=== PATIENT | female | born 1985 | race Caucasian/White ===

== ENCOUNTER 2016-02-22 10:15 | Emergency (ER) | payer OTHER ==
[2016-02-22 10:41] VITALS: BP 109/67; PULSE 91; RESP 18; TEMP 98.1
--- NOTE | 2016-02-22 11:07 | ED ---
Skin/Abscess/FB HPI - General Chief complaint: Skin/Abscess/Foreign Body Stated complaint: RASH/ITCH Time Seen by Provider: 02/22/16 10:48 Source: patient, RN notes reviewed Mode of arrival: ambulatory - History of Present Illness Initial comments: Patient is a 30-year-old female who presents emergency room today with a chief complaint of a rash 3 months. Patient does admit that over the last few months she's been to several doctors told that it was ALLERGIES. States she's changed also some detergents. Tried multiple medications for ALLERGIES. States no relief. States it has changed where it started on the palms and no she has another rash that is too of the wrist belt line and scattered throughout the upper and lower extremities. States very itchy. States has same rash along with 2 daughters at home. Patient denies any recent fever, chills, shortness of breath, chest pain, back pain, abdominal pain, nausea or vomiting, numbness or tingling, dysuria or hematuria, constipation or diarrhea, headaches or visual changes, or any other complaints. - Related Data Home Medications Medication Instructions Recorded Confirmed Control(Unknown) 1 tab PO DAILY 07/29/15 02/22/16 Allergies Allergy/AdvReac Type Severity Reaction Status Date / Time morphine Allergy Itching Verified 02/22/16 10:41 Penicillins Allergy Rash/Hives Verified 02/22/16 10:41 Review of Systems ROS Statement: Those systems with pertinent positive or pertinent negative responses have been documented in the HPI. ROS Other: All systems not noted in ROS Statement are negative. Past Medical History Past Medical History: No Reported History History of Any Multi-Drug Resistant Organisms: None Reported Additional Past Surgical History / Comment(s): Lap, c section X2, removal of right ovary Past Psychological History: Anxiety Smoking Status: Current every day smoker Past Alcohol Use History: None Reported Past Drug Use History: None Reported General Exam - General Exam Comments Initial Comments: General: The patient is awake and alert, in no distress, and does not appear acutely ill. Eye: Pupils are equal, round and reactive to light, extra-ocular movements are intact. No nystagmus. There is normal conjunctiva bilaterally. No signs of icterus. Ears, nose, mouth and throat: There are moist mucous membranes and no oral lesions. Neck: The neck is supple, there is no tenderness or JVD. Cardiovascular: There is a regular rate and rhythm. No murmur, rub or gallop is appreciated. Respiratory: Lungs are clear to auscultation, respirations are non-labored, breath sounds are equal. No wheezes, stridor, rales, or rhonchi. Musculoskeletal: Normal ROM, no tenderness. Strength 5/5. Sensation intact. Pulses equal bilaterally 2+. Neurological: A&O x 3. CN II-XII intact, There are no obvious motor or sensory deficits. Coordination appears grossly intact. Speech is normal. Skin: Patient does have small little red spots that are excoriated from itching to the right lateral wrist and upper arms and trunk area. Psychiatric: Cooperative, appropriate mood & affect, normal judgment. Course Vital Signs 02/22/16 10:37 Temperature 98.1 F Pulse Rate 91 Respiratory 18 Rate Blood Pressure 109/67 O2 Sat by Pulse 99 Oximetry Medical Decision Making - Medical Decision Making Patient's rash is consistent with scabies and will be treated with permethrin cream advised repeat in 7-10 days. Disposition Clinical Impression: Scabies Disposition: HOME SELF-CARE Condition: Good Instructions: Scabies (ED) Additional Instructions: Please use cream from the neck down and repeat in 7-10 days as discussed. Time of Disposition: 11:04
== END 2016-02-22 11:30 | disposition home or self-care (01) ==
LOC: EC 10:15
DX: B86 Scabies (principal); F17.200 Nicotine dependence, unspecified, uncomplicated; Z88.0 Allergy status to penicillin; Z88.5 Allergy status to narcotic agent; Z79.3 Long term (current) use of hormonal contraceptives
CPT/HCPCS: 99282

== ENCOUNTER 2016-06-21 07:58 | Emergency (ER) | payer OTHER ==
--- NOTE | 2016-06-21 08:24 | ED ---
Neck Injury/Pain HPI - General Chief Complaint: Neck Pain/Injury Stated Complaint: neck and back pain Time Seen by Provider: 06/21/16 08:11 Source: patient, RN notes reviewed Mode of arrival: ambulatory Limitations: no limitations - History of Present Illness Initial Comments: 30-year-old female presents emergency Department chief complaint of neck and back pain. Patient states that she's had this in the past but woke up last night with this pain. She states is worse with movement and deep inspiration denies any shortness breath, chest pain. Denies any fever, chills or any cold like symptoms. Patient states that she feels pain around the right side of the neck but also around her shoulder blades in her rib region. She states it is bilateral in her ribs. She denies abdominal pain including nausea, vomiting diarrhea constipation. She states she is concerned she may be . Denies any vaginal bleeding vaginal discharge. Denies any dysuria or hematuria. Tylenol with no relief of symptoms. She states a warm heating pad did help. Shower no help. - Related Data Home Medications Medication Instructions Recorded Confirmed diphenhydrAMINE HCL [Benadryl] 50 mg PO HS 06/21/16 06/21/16 Previous Rx's Medication Instructions Recorded Ibuprofen [Motrin] 600 mg PO Q8HR PRN #30 tab 06/21/16 Orphenadrine [Norflex] 100 mg PO Q12H #10 tablet.er 06/21/16 Allergies Allergy/AdvReac Type Severity Reaction Status Date / Time Penicillins Allergy Unknown Verified 06/21/16 08:23 Childhood morphine AdvReac Itching Verified 06/21/16 08:23 Review of Systems ROS Statement: Those systems with pertinent positive or pertinent negative responses have been documented in the HPI. ROS Other: All systems not noted in ROS Statement are negative. Past Medical History Past Medical History: No Reported History History of Any Multi-Drug Resistant Organisms: None Reported Additional Past Surgical History / Comment(s): Lap, c section X2, removal of right ovary Past Psychological History: Anxiety Smoking Status: Current every day smoker Past Alcohol Use History: None Reported Past Drug Use History: None Reported General Exam Limitations: no limitations General appearance: alert, in no apparent distress Head exam: Present: atraumatic, normocephalic, normal inspection Eye exam: Present: normal appearance, PERRL, EOMI. Absent: scleral icterus, conjunctival injection, periorbital swelling ENT exam: Present: normal exam, normal oropharynx, mucous membranes moist, TM's normal bilaterally, normal external ear exam Neck exam: Present: normal inspection, tenderness (Right trapezius moderate), full ROM. Absent: meningismus, lymphadenopathy Respiratory exam: Present: normal lung sounds bilaterally, chest wall tenderness (Primarily on the right but also some on the left). Absent: respiratory distress, wheezes, rales, rhonchi, stridor Cardiovascular Exam: Present: regular rate, normal rhythm, normal heart sounds. Absent: systolic murmur, diastolic murmur, rubs, gallop, clicks GI/Abdominal exam: Present: soft, normal bowel sounds. Absent: distended, tenderness, guarding, rebound, rigid Back exam: Present: full ROM, tenderness, paraspinal tenderness. Absent: CVA tenderness (R), muscle spasm, vertebral tenderness Neurological exam: Present: alert, oriented X3, CN II-XII intact Skin exam: Present: warm, dry, intact, normal color. Absent: rash Course Vital Signs 06/21/16 08:06 Temperature 99.4 F Pulse Rate 72 Respiratory 20 Rate Blood Pressure 109/76 O2 Sat by Pulse 99 Oximetry Medical Decision Making - Medical Decision Making 30-year-old female presented for neck, back and chest pain. Patient has costochondritis and right trapezius muscle spasm. Patient was placed on ibuprofen, Norflex. Return parameters were discussed. - Lab Data Lab Results 06/21/16 Range/Units 08:20 Urine HCG, Qual Not Detected (Not Detectd) Disposition Clinical Impression: Trapezius muscle spasm, Costochondritis, acute Disposition: HOME SELF-CARE Condition: Stable Instructions: Costochondritis (ED), Muscle Spasm (ED) Additional Instructions: Please return to the Emergency Department if symptoms worsen or any other concerns. Prescriptions: Ibuprofen [Motrin] 600 mg PO Q8HR PRN #30 tab PRN Reason: Pain Orphenadrine [Norflex] 100 mg PO Q12H #10 tablet.er Time of Disposition: 09:34
--- NOTE | 2016-06-21 09:19 | XR ---
EXAMINATION TYPE: XR chest 2V DATE OF EXAM: 06/21/2016 9:16 AM HISTORY: Cough/pain. REFERENCE: NONE. FINDINGS: The lungs are clear. Pleural spaces are clear. The heart is not enlarged. IMPRESSION: NO ACUTE INTRATHORACIC ABNORMALITY.
[2016-06-21] MEDS ORDERED: KETOROLAC 60 MG/2 ML VIAL IM STA (09:35)
[2016-06-21] MEDS ORDERED: ORPHENADRINE 30 MG/ML 2 ML VIAL IM STA (09:35)
[2016-06-21 10:13] VITALS: BP 127/65; PULSE 90; RESP 18; TEMP 98.6
== END 2016-06-21 10:13 | disposition home or self-care (01) ==
LOC: EC 07:58
DX: M94.0 Chondrocostal junction syndrome [Tietze] (principal); M62.838 Other muscle spasm; F17.200 Nicotine dependence, unspecified, uncomplicated; Z79.899 Other long term (current) drug therapy; Z88.0 Allergy status to penicillin; Z88.5 Allergy status to narcotic agent
CPT/HCPCS: 81025; 71020; 99283; 96372 ×2; J2360; J1885

== ENCOUNTER 2016-08-18 11:29 | Emergency (ER) | payer OTHER ==
[2016-08-18 11:38] VITALS: BP 102/57; PULSE 80; RESP 18; TEMP 97.5
[2016-08-18] MEDS ORDERED: SODIUM CHLORIDE 0.9% 1,000 ML IV STA (11:44)
--- NOTE | 2016-08-18 11:48 | ED ---
Female Urogenital HPI - General Chief complaint: Vaginal Bleeding Stated complaint: 7 WEEKS AND BLEEDING Time Seen by Provider: 08/18/16 11:39 Source: patient, RN notes reviewed Mode of arrival: ambulatory Limitations: no limitations - History of Present Illness Initial comments: 31-year-old female presents to the emergency department with a chief complaint of vaginal bleeding in . Patient states she's about 7 weeks' and she had that started today. Patient states it started on the tissue paper when she wipes. Patient states she hasn't had any abdominal pain with this. Patient states this is a . Patient states is been no nausea vomiting. Patient states she is sick with an upper respiratory type infection and she is on azithromycin and Medrol Dosepak. Patient states she was concerned due to her continued symptoms so she thought that she evaluated. Patient denies any recent fever, chills, shortness of breath, chest pain, back pain, abdominal pain , nausea vomiting, numbness or tingling, dysuria or hematuria, constipation or diarrhea, headaches or visual changes, or any other current symptoms. Last Menstrual Period: 07/01/16 - Related Data Home Medications Medication Instructions Recorded Confirmed diphenhydrAMINE HCL [Benadryl] 50 mg PO HS 06/21/16 08/18/16 Allergies Allergy/AdvReac Type Severity Reaction Status Date / Time Penicillins Allergy Unknown Verified 08/18/16 11:47 Childhood morphine AdvReac Itching Verified 08/18/16 11:47 Review of Systems ROS Statement: Those systems with pertinent positive or pertinent negative responses have been documented in the HPI. ROS Other: All systems not noted in ROS Statement are negative. Past Medical History Past Medical History: No Reported History History of Any Multi-Drug Resistant Organisms: None Reported Additional Past Surgical History / Comment(s): Lap, c section X2, removal of right ovary Past Psychological History: Anxiety Smoking Status: Former smoker Past Alcohol Use History: None Reported Past Drug Use History: None Reported General Exam - General Exam Comments Initial Comments: General: The patient is awake and alert, in no distress, and does not appear acutely ill. Eye: Pupils are equal, round and reactive to light, extra-ocular movements are intact; there is normal conjunctiva bilaterally. No signs of icterus. Ears, nose, mouth and throat: There are moist mucous membranes and no oral lesions. Neck: The neck is supple, there is no tenderness. Cardiovascular: There is a regular rate and rhythm. No murmur, rub or gallop is appreciated. Respiratory: Lungs are clear to auscultation, respirations are non-labored, breath sounds are equal. She is expiratory wheeze, no stridor, rales, or rhonchi. Gastrointestinal: Soft, non-distended, non-tender abdomen without masses or organomegaly noted. There is no rebound or guarding present. No CVA tenderness. Bowel sounds are unremarkable. Back: There is no tenderness to palpation in the midline. There is no obvious deformity. No rashes noted. Musculoskeletal: Normal ROM, no tenderness, There is no pedal edema. There is no calf tenderness or swelling. Sensation intact. Pulses equal bilaterally 2+. Neurological: CN II-XII intact, There are no obvious motor or sensory deficits. Coordination appears grossly intact. Speech is normal. Skin: Skin is warm and dry and no rashes or lesions are noted. Psychiatric: Cooperative, appropriate mood & affect, normal judgment. Limitations: no limitations External exam: Present: normal external exam Speculum exam: Present: normal speculum exam, vaginal discharge (Minimal) By manual exam: Present: normal by manual exam Course Vital Signs 08/18/16 11:34 Temperature 97.5 F L Pulse Rate 80 Respiratory 18 Rate Blood Pressure 102/57 O2 Sat by Pulse 98 Oximetry Medical Decision Making - Medical Decision Making 31-year-old female presents with chief complaint of vaginal bleeding in . Patient's lab work and blood work has been reviewed. This time we discussed close follow-up with [facility]. We discussed return parameters all questions. Patient stated that she understood and she is planned. She will be discharged. - Lab Data Result diagrams: 08/18/16 12:11 08/18/16 12:11 Lab Results 08/18/16 08/18/16 08/18/16 Range/Units 12:11 12:11 12:11 WBC 20.4 H (3.8-10.6) k/uL RBC 4.62 (3.80-5.40) m/uL Hgb 12.5 (11.4-16.0) gm/dL Hct 37.2 (34.0-46.0) % MCV 80.5 (80.0-100.0) fL MCH 26.9 (25.0-35.0) pg MCHC 33.5 (31.0-37.0) g/dL RDW 15.9 H (11.5-15.5) % Plt Count 391 (150-450) k/uL Neutrophils % 71 % Lymphocytes % 23 % Monocytes % 3 % Eosinophils % 1 % Basophils % 0 % Neutrophils # 14.6 H (1.3-7.7) k/uL Lymphocytes # 4.7 (1.0-4.8) k/uL Monocytes # 0.7 (0-1.0) k/uL Eosinophils # 0.1 (0-0.7) k/uL Basophils # 0.1 (0-0.2) k/uL Sodium 138 (137-145) mmol/L Potassium 3.9 (3.5-5.1) mmol/L Chloride 107 (98-107) mmol/L Carbon Dioxide 19 L (22-30) mmol/L Anion Gap 12 mmol/L BUN 12 (7-17) mg/dL Creatinine 0.49 L (0.52-1.04) mg/dL Est GFR (MDRD) Af Amer >60 (>60 ml/min/1.73 sqM) Est GFR (MDRD) Non-Af >60 (>60 ml/min/1.73 sqM) Glucose 83 (74-99) mg/dL Calcium 8.9 (8.4-10.2) mg/dL Total Bilirubin 0.6 (0.2-1.3) mg/dL AST 16 (14-36) U/L ALT 28 (9-52) U/L Alkaline Phosphatase 64 (38-126) U/L Total Protein 7.1 (6.3-8.2) g/dL Albumin 4.2 (3.5-5.0) g/dL HCG, Quant 30501.6 mIU/mL Urine Color Urine Appearance (Clear) Urine pH (5.0-8.0) Ur Specific [place] (1.001-1.035) Urine Protein (Negative) Urine Glucose (UA) (Negative) Urine Ketones (Negative) Urine Blood (Negative) Urine Nitrite (Negative) Urine Bilirubin (Negative) Urine Urobilinogen (<2.0) mg/dL Ur Leukocyte Esterase (Negative) Urine RBC (0-5) /hpf Urine WBC (0-5) /hpf Ur Squamous Epith Cells (0-4) /hpf Urine Bacteria (None) /hpf Urine Mucus (None) /hpf Urine HCG, Qual (Not Detectd) Blood Type O Positive Blood Type Recheck No 08/18/16 08/18/16 Range/Units 12:20 12:20 WBC (3.8-10.6) k/uL RBC (3.80-5.40) m/uL Hgb (11.4-16.0) gm/dL Hct (34.0-46.0) % MCV (80.0-100.0) fL MCH (25.0-35.0) pg MCHC (31.0-37.0) g/dL RDW (11.5-15.5) % Plt Count (150-450) k/uL Neutrophils % % Lymphocytes % % Monocytes % % Eosinophils % % Basophils % % Neutrophils # (1.3-7.7) k/uL Lymphocytes # (1.0-4.8) k/uL Monocytes # (0-1.0) k/uL Eosinophils # (0-0.7) k/uL Basophils # (0-0.2) k/uL Sodium (137-145) mmol/L Potassium (3.5-5.1) mmol/L Chloride (98-107) mmol/L Carbon Dioxide (22-30) mmol/L Anion Gap mmol/L BUN (7-17) mg/dL Creatinine (0.52-1.04) mg/dL Est GFR (MDRD) Af Amer (>60 ml/min/1.73 sqM) Est GFR (MDRD) Non-Af (>60 ml/min/1.73 sqM) Glucose (74-99) mg/dL Calcium (8.4-10.2) mg/dL Total Bilirubin (0.2-1.3) mg/dL AST (14-36) U/L ALT (9-52) U/L Alkaline Phosphatase (38-126) U/L Total Protein (6.3-8.2) g/dL Albumin (3.5-5.0) g/dL HCG, Quant mIU/mL Urine Color Yellow Urine Appearance Cloudy H (Clear) Urine pH 6.5 (5.0-8.0) Ur Specific [place] 1.018 (1.001-1.035) Urine Protein Negative (Negative) Urine Glucose (UA) Negative (Negative) Urine Ketones Negative (Negative) Urine Blood Moderate H (Negative) Urine Nitrite Negative (Negative) Urine Bilirubin Negative (Negative) Urine Urobilinogen <2.0 (<2.0) mg/dL Ur Leukocyte Esterase Negative (Negative) Urine RBC 3 (0-5) /hpf Urine WBC 2 (0-5) /hpf Ur Squamous Epith Cells 9 H (0-4) /hpf Urine Bacteria Rare H (None) /hpf Urine Mucus Rare H (None) /hpf Urine HCG, Qual Detected (Not Detectd) Blood Type Blood Type Recheck - Radiology Data Radiology results: report reviewed, image reviewed Disposition Clinical Impression: Threatened Disposition: HOME SELF-CARE Condition: Stable Instructions: Threatened Miscarriage (ED) Additional Instructions: Please use medication as discussed. Please follow up with family doctor if symptoms have not improved over the next two days. Please return to the emergency room if your symptoms increase or worsen or for any other concerns. Referrals: Keren Mcbride MD [STAFF PHYSICIAN] - 1-2 days Time of Disposition: 13:43
[2016-08-18 12:23] LABS: Basophils # (A) 0.1 k/uL (0-0.2); Basophils % (A) 0 %; CH 27.3; CHCM 34.1; Eosinophils # (A) 0.1 k/uL (0-0.7); Eosinophils % (A) 1 %; HCT 37.2 % (34.0-46.0); HGB 12.5 gm/dL (11.4-16.0); Luc # (Auto) 0.25; Luc % (Auto) 1; Lymphocytes # (A) 4.7 k/uL (1.0-4.8); Lymphocytes % (A) 23 %; MCH 26.9 pg (25.0-35.0); MCHC 33.5 g/dL (31.0-37.0); MCV 80.5 fL (80.0-100.0); Mean Platelet Volume 6.5; Monocytes # (A) 0.7 k/uL (0-1.0); Monocytes % (A) 3 %; Neutrophils # (A) 14.6 k/uL (1.3-7.7); Neutrophils % (A) 71 %; RBC 4.62 m/uL (3.80-5.40); RDW 15.9 % (11.5-15.5); WBC 20.4 k/uL (3.8-10.6); WBC (Perox) 19.24
[2016-08-18 12:37] LABS: ALT 28 U/L (9-52); AST 16 U/L (14-36); Alkaline Phosphatase 64 U/L (38-126); Anion Gap 12 mmol/L; Blood Urea Nitrogen 12 mg/dL (7-17); Calcium 8.9 mg/dL (8.4-10.2); Carbon Dioxide 19 mmol/L (22-30); Chloride 107 mmol/L (98-107); Glucose 83 mg/dL (74-99); Non-African American GFR(MDRD) >60 (>60 ml/min/1.73 sqM); Potassium 3.9 mmol/L (3.5-5.1); Sodium 138 mmol/L (137-145); Total Bilirubin 0.6 mg/dL (0.2-1.3); Total Protein 7.1 g/dL (6.3-8.2)
[2016-08-18 12:59] LABS: Appearance,Urine Cloudy (Clear); Bacteria,Urine Rare /hpf; Bilirubin,Urine Negative (Negative); Glucose,Urine (UA) Negative (Negative); Ketones,Urine Negative (Negative); Leukocyte Esterase,Urine Negative (Negative); Mucus,Urine Rare /hpf; Nitrite,Urine Negative (Negative); PH, Urine 6.5 (5.0-8.0); Particle Count 4619; Protein,Urine Negative (Negative); RBC,Urine 3 /hpf (0-5); Specific Gravity,Urine 1.018 (1.001-1.035); Squamous Epithelial Cell,Urine 9 /hpf (0-4); UA Billing (MACRO vs. MICRO) MICRO; Urobilinogen,Urine <2.0 mg/dL (<2.0); WBC,Urine 2 /hpf (0-5)
--- NOTE | 2016-08-18 13:40 | US ---
EXAMINATION TYPE: US OB <= 14 wk fetus DATE OF EXAM: 08/18/2016 COMPARISON: TV on 07/29/2015 CLINICAL HISTORY: Pain. bleeding EXAM PERFORMED: Transvaginal (TV) and Transabdominal (TA) EXAM MEASUREMENTS: GESTATIONAL AGE / DATING Physician Established: none Dates by LMP: (6 weeks/6 days) EDC: 04/07/2017 Dates by First Scan: no previous Dates by Current Scan for: (5 weeks/6 days) EDC: 04/14/2017 MATERNAL ANATOMY Uterus: 9.8 x 5.9 x 7.7 cm Right Ovary: 5.0 x 2.8 x 3.0 cm Left Ovary: surgically absent Post CDS / Adnexa: wnl Presence of free fluid: no Presence of corpus luteal cyst: no Presence of subchorionic bleed: no GESTATION / SURVEY CRL: 0.5 cm (6 weeks/1 days) MSD: 1.3 cm (5 weeks/3 days) Yolk Sac (normal less than 6mm): 4 mm Heart Rate: 128 bpm Rhythm: Normal IUP: Viable IUP Date of LMP: 07/01/2016 Two hyperechoic lesions, as seen on previous study, measuring 1.1 x 1.0 cm and 1.8 x 1.6 cm respectiv marilin; also a complex lesion, as seen previously measuring 1.3 x 1.1 cm on right ovary. IMPRESSION: Single, viable IUP of 5 weeks 6 Days
[2016-08-18 13:42] LABS: HCG,Quantitative Serum 16167.6 mIU/mL
== END 2016-08-18 14:08 | disposition home or self-care (01) ==
LOC: EC 11:29
DX: O20.0 Threatened abortion (principal); Z87.891 Personal history of nicotine dependence; Z79.899 Other long term (current) drug therapy; Z88.0 Allergy status to penicillin; Z88.5 Allergy status to narcotic agent
CPT/HCPCS: 36415; 76801; 76817; 80053; 81001; 81025; 84702; 85025; 86900; 86901; 87086; 96360; 96361; 99284

== ENCOUNTER 2016-11-29 13:25 | Outpatient (CLI) | payer OTHER ==
[2016-11-29 13:49] LABS: Glucose,Whole Blood 124 mg/dL (75-99)
[2016-11-29 14:05] VITALS: BP 108/66; PULSE 91; RESP 17; TEMP 97.7
[2016-11-29 14:38] LABS: Appearance,Urine Clear (Clear); Bilirubin,Urine Negative (Negative); Glucose,Urine (UA) Negative (Negative); Ketones,Urine Negative (Negative); Leukocyte Esterase,Urine Negative (Negative); Nitrite,Urine Negative (Negative); PH, Urine 6.5 (5.0-8.0); Protein,Urine Negative (Negative); Specific Gravity,Urine 1.004 (1.001-1.035); UA Billing (MACRO vs. MICRO) CHEM; Urobilinogen,Urine <2.0 mg/dL (<2.0)
--- NOTE | 2016-11-29 23:07 | P.MSEPDOC ---
Presenting Problems - Arrival Data Date of Arrival on Unit: 11/29/16 Time of Arrival on Unit: 13:25 Mode of Transport: Wheelchair - Complaint OB-Reason for Admission/Chief Complaint: Decreased Movement, Dizziness Comment: pt started taking fiorcet for headaches yesterday morning and has been feeling dizzy and had emesis x2 since starting med, also reports decrease movement Medical History - Information : 5 Para: 2 Term: 2 : 0 Abortions: Spontaneous or Elective: 2 Number of Living Children: 2 - Gestational Age Gestational Age by TOBY (wks/days): 21 Weeks and 4 Days - History Complications: GDM Comment: pt reports history of GDM, checked bedside accucheck with result of 124 , pt is 21 4/7 weeks gestation Review of Systems - Review of Systems Constitutional: No problems Breast: No problems ENT: No problems Cardiovascular: No problems Respiratory: No problems Gastrointestinal: No problems Genitourinary: No problems Musculoskeletal: No problems Neurological: Dizziness Skin: No problems Vital Signs - Temperature Temperature: 97.7 F Temperature Source: Temporal Artery Scan - Pulse Right Brachial Pulse Rate: 91 Pulse Assessment Method: Auscultation - Respirations Respiratory Rate: 17 Oxygen Delivery Method: Room Air O2 Sat by Pulse Oximetry: 97 - Blood Pressure Right Arm Blood Pressure: 108/66 Blood Pressure Mean: 80 Blood Pressure Source: Automatic Cuff Medical Screen Scoring (Pre) - Cervical Exam Dilation: Exam Deferred Effacement: Exam Deferred Membranes: Intact - Uterine Contractions Frequency: N/A Duration: N/A Intensity: N/A - Maternal Vital Signs Maternal Temperature: N/A Maternal Blood Pressure: N/A Signs of Preeclampsia: N/A Maternal Respirations: N/A - Maternal Trauma Maternal Trauma: N/A - Assessment Baseline FHR: 140 Position: N/A Station: N/A - Total Score Total Score (Pre): 0 - Level of Risk Level of Risk: Low (0-5) Physician Notification (Pre) - Physician Notified Physician Notified Date: 11/29/16 Physician Notified Time: 14:05 Physician/Practitioner Notifed:: Dr Lozano Spoke With: Dr Lozano New Order Received: Yes (send u/a) - Notification Comment Comment: pt is receiving care from Dr Dang Medical Screen Scoring (Post) - Uterine Contractions Frequency: N/A Duration: N/A Intensity: N/A - Maternal Vital Signs Maternal Temperature: N/A Maternal Blood Pressure: N/A Signs of Preeclampsia: N/A Maternal Respirations: N/A - Maternal Trauma Maternal Trauma: N/A - Assessment Position: N/A Station: N/A - Total Score Total Score (Post): 0 - Post Treatment Level of Risk Post Treatment Level of Risk: Low (0-5) Physician Notification (Post) - Physician Notified Physician Notified Date: 11/29/16 Physician Notified Time: 14:45 Physician/Practitioner Notified:: Dr Lozano Spoke With: Dr Lozano New Order Received: Yes (dc home) Disposition - Disposition OB Disposition: Discharge to home, Written follow up instructions reviewed Discharge Date: 11/29/16 Discharge Time: 14:50 I agree with the RN Medical Screening Exam: Yes Risk & Benefit of care provided described in d/c instruction: Yes Diagnosis: DECREASED MOVEMENTS, SECOND TRIMESTER, FETUS 1
== END 2016-11-29 14:50 | disposition home or self-care (01) ==
LOC: FBPOP 13:25
PROVIDERS: ATTEND Obstetrics & Gynecology
DX: O36.8121 Decreased fetal movements, second trimester, fetus 1 (principal); Z3A.21 21 weeks gestation of pregnancy
CPT/HCPCS: 81003; G0463; 99213

== ENCOUNTER 2017-10-21 18:20 | Emergency (ER) | payer OTHER ==
[2017-10-21 18:23] VITALS: BP 116/72; PULSE 94; RESP 20; TEMP 97.9
[2017-10-21] MEDS ORDERED: KETOROLAC 30 MG/ML 1 ML VIAL IM STA (18:57)
--- NOTE | 2017-10-21 19:00 | ED ---
General Adult HPI - General Chief complaint: Neck Pain/Injury Stated complaint: Neck Pain Time Seen by Provider: 10/21/17 18:31 Source: patient, RN notes reviewed Mode of arrival: ambulatory Limitations: no limitations - History of Present Illness Initial comments: 32-year-old female with a chief complaint of neck and right shoulder pain 2 weeks. Patient denies any injuries. Patient states the pain is all on the right side of her neck and travels to her right shoulder. She states movement of the neck and shoulder make the pain worse. Patient also complains of some numbness on her right lateral shoulder. Patient denies any fevers or chills or recent illnesses. Patient states she had a massage about one month ago and has been seeing chiropractics. When she requested x-rays they stated they were not able to do them. Patient did attempt to follow-up with primary care doctor but just established yesterday so was unable to do so. Patient denies any chance of and states she has had a tubal. Patient has no other complaints at this time including shortness of breath, chest pain, abdominal pain, nausea or vomiting, headache, or visual changes. - Related Data Home Medications Medication Instructions Recorded Confirmed Butalb/APAP/Caff 50-325-40Mg 1 - 2 tab PO Q6HR PRN 11/29/16 11/29/16 [Fioricet 50-325-40] Ferrous Sulfate [Iron] 325 mg PO DAILY 11/29/16 11/29/16 Folic Acid 0.4 mg PO DAILY 11/29/16 11/29/16 Loratadine 10 mg PO DAILY 11/29/16 11/29/16 Pnv No.95/Ferrous Fum/Folic AC 1 each PO DAILY 11/29/16 11/29/16 [ Multivitamin Tablet] Ranitidine HCl [Zantac] 75 mg PO BID 11/29/16 11/29/16 Vitamin B Complex 1 each PO DAILY 11/29/16 11/29/16 Allergies Allergy/AdvReac Type Severity Reaction Status Date / Time Penicillins Allergy Unknown Verified 10/21/17 18:23 Childhood morphine AdvReac Itching Verified 10/21/17 18:23 Review of Systems ROS Statement: Those systems with pertinent positive or pertinent negative responses have been documented in the HPI. ROS Other: All systems not noted in ROS Statement are negative. Past Medical History Past Medical History: No Reported History History of Any Multi-Drug Resistant Organisms: None Reported Additional Past Surgical History / Comment(s): Lap, c section X2, removal of right ovary Past Psychological History: Anxiety Smoking Status: Current every day smoker Past Alcohol Use History: None Reported Past Drug Use History: None Reported General Exam Limitations: no limitations General appearance: alert, in no apparent distress Head exam: Present: atraumatic, normocephalic, normal inspection Eye exam: Present: normal appearance, PERRL, EOMI. Absent: scleral icterus, conjunctival injection, nystagmus, periorbital swelling, periorbital tenderness ENT exam: Present: normal exam, normal oropharynx, mucous membranes moist, TM's normal bilaterally, normal external ear exam Neck exam: Present: normal inspection, tenderness (No tenderness of the cervical spine. However patient does have tenderness of the right trapezius along the cervical portion.), full ROM (Patient does have full range of motion of the neck but has some pain with flexion and looking to the left.). Absent: meningismus, lymphadenopathy Respiratory exam: Present: normal lung sounds bilaterally. Absent: respiratory distress, wheezes, rales, rhonchi, stridor Cardiovascular Exam: Present: regular rate, normal rhythm, normal heart sounds. Absent: systolic murmur, diastolic murmur, rubs, gallop, clicks Extremities exam: Present: normal capillary refill (Capillary refill less than 2 seconds and radial pulse 2+ in the right upper extremity), other (Sensation intact in right upper extremity extremity. However patient does have some decreased sensation of the right deltoid.). Absent: full ROM (Patient is able to abduct shoulder to 90 and flex shoulder to 90. Able to extend to 30.) Back exam: Absent: tenderness Neurological exam: Present: alert, oriented X3, CN II-XII intact Psychiatric exam: Present: normal affect, normal mood Skin exam: Present: warm, dry, intact, normal color. Absent: rash Course Vital Signs 10/21/17 18:22 Temperature 97.9 F Pulse Rate 94 Respiratory 20 Rate Blood Pressure 116/72 O2 Sat by Pulse 99 Oximetry Medical Decision Making - Medical Decision Making 32-year-old female since to the emergency department for a chief complaint of right neck and shoulder pain 2 months. Patient has tenderness of the right paraspinal trapezius as well as tenderness of the trapezius around the right shoulder blade. Minor decreased sensation over the right deltoid. Neurovascular intact otherwise. Secondary Connector Armature strength 5 out of 5 in the right upper extremity. Right arm strength 5 out of 5. X-ray shows a negative right shoulder exam, no fracture or dislocation. Cervical spine shows a negative exam. There are bilateral cervical ribs. Patient likely has a muscle spasm of the right trapezius as well as cervical radiculopathy causing pain in the shoulder and decreased sensation to the deltoid. Patient was given a Toradol shot in the emergency department. She will continue Tylenol for the rest of the night and then resume taking Motrin tomorrow. She will heat the area and do gentle stretching. She will follow up with orthopedics in one to 2 days. She will return if she has any worsening symptoms. Disposition Clinical Impression: Trapezius muscle spasm, Cervical radiculopathy Disposition: HOME SELF-CARE Condition: Good Instructions: Cervical Radiculopathy (ED), Muscle Spasm (ED) Additional Instructions: Please take Motrin and Tylenol for pain. Please apply heat to the area. These use gentle stretching of the right shoulder and neck. Please follow-up with orthopedics in one to 2 days. Return to the emergency department if you have any worsening symptoms. Is patient prescribed a controlled substance at d/c from ED?: No Referrals: Clay Saxena MD [Primary Care Provider] - 1-2 days Tyrone Walters MD [STAFF PHYSICIAN] - 1-2 days Time of Disposition: 19:58
--- NOTE | 2017-10-21 19:38 | XR ---
EXAMINATION TYPE: XR cervical spine comp DATE OF EXAM: 10/21/2017 COMPARISON: NONE HISTORY: Neck pain TECHNIQUE: 6 views FINDINGS: Vertebra have normal spacing and alignment. Posterior elements are intact. Neural foramina are widely patent. Atlantoaxial facet joint is normal. There are small cervical ribs. IMPRESSION: Bilateral cervical ribs. Otherwise negative exam.
--- NOTE | 2017-10-21 19:40 | XR ---
EXAMINATION TYPE: XR shoulder complete RT DATE OF EXAM: 10/21/2017 COMPARISON: NONE HISTORY: Neck pain TECHNIQUE: 3 views FINDINGS: I see no fracture nor dislocation. Joint spaces are normal. There are no pathologic calcifi cations. IMPRESSION: Negative right shoulder exam.
== END 2017-10-21 20:04 | disposition home or self-care (01) ==
LOC: SUPCPDRO 18:20 → EC 18:20
DX: M54.12 Radiculopathy, cervical region (principal); M62.830 Muscle spasm of back; F17.200 Nicotine dependence, unspecified, uncomplicated; Z79.899 Other long term (current) drug therapy; Z88.0 Allergy status to penicillin; Z88.5 Allergy status to narcotic agent
CPT/HCPCS: 72050; 73030; 99283; 96372; J1885

== ENCOUNTER 2017-12-14 10:13 | Day surgery (SDC) | payer OTHER ==
[2017-12-06 11:07] VITALS: BMI 32.4
[~2017-12-14 10:13] MED LIST: BACITRACIN 50,000 UNIT, POLYMYXIN B 500,000 UNIT in SODIUM CHLORIDE 0.9% IRRIGATIO 1,00... IRRIGATION ONE; DEXAMETHASONE SOD PHOSPHATE 10 MG/ML 1 ML VIAL IV ONE; LACTATED RINGERS 1,000 ML IV SCH; MIDAZOLAM 2 MG/2 ML VIAL IV PRN; ONDANSETRON 4 MG/2 ML VIAL IVP ONE; ceFAZolin IN SWFI 2 GM/20 ML SYRINGE IVP ONE
[2017-12-14] MEDS ORDERED: LIDOCAINE 1% 20 ML VIAL (10MG/ML) FOR IV START INTRADERMA ONE (10:50)
[2017-12-14] MEDS ORDERED: SUCCINYLCHOLINE CHLORIDE 100 MG/5 ML SYR IV ONE (11:11)
[2017-12-14] MEDS ORDERED: fentaNYL (PF) 50 MCG/ML 2 ML AMP ONE (11:11)
[2017-12-14] MEDS ORDERED: PROPOFOL 10 MG/ML 20 ML VIAL IV ONE (11:11)
[2017-12-14] MEDS ORDERED: MIDAZOLAM 2 MG/2 ML VIAL ONE (11:11)
[2017-12-14] MEDS ORDERED: LIDOCAINE 1% INJ 10MG/ML (20 ML MDV) ONE (11:11)
[2017-12-14] MEDS ORDERED: HYDROmorphone (PF) 1 MG/ML ONE (11:11)
[2017-12-14] MEDS ORDERED: BUPIVACAINE-EPI 0.5%-1:200,000 10 ML VIAL SQ ONE (12:39)
[2017-12-14] MEDS ORDERED: ONDANSETRON 4 MG/2 ML VIAL IVP PRN (12:54)
[2017-12-14] MEDS ORDERED: HYDROmorphone 1 MG/ML 1 ML SYRINGE IVP PRN ×2 (12:54)
[2017-12-14] MEDS ORDERED: HYDROcodone/APAP 5-325MG 1 EACH TAB PO PRN (12:54)
[2017-12-14] MEDS ORDERED: BENZOCAINE/MENTHOL LOZENG 1 EACH LOZENGE MUCOUS MEM PRN (12:54)
[2017-12-14] MEDS ORDERED: ACETAMINOPHEN TAB 325 MG TAB PO PRN (12:54)
--- NOTE | 2017-12-14 12:55 | XR ---
EXAMINATION TYPE: XR cervical spine 1V DATE OF EXAM: 12/14/2017 COMPARISON: NONE HISTORY: Postop TECHNIQUE: One view is submitted. FINDINGS: Postsurgical change appears in near-anatomic alignment. Suggestion of an endotracheal tube. Additiona l wiring catheters overlying the soft tissues. IMPRESSION: 1. Postsurgical change.
[2017-12-14] MEDS ORDERED: SODIUM CHLORIDE 0.9% 1,000 ML IV SCH (13:00)
--- NOTE | 2017-12-14 13:00 | P.OP ---
Date of Procedure: 12/14/17 Preoperative Diagnosis: Herniated nucleus pulposis C4 5 Right upper extremity radiculopathy Right upper extremity weakness Neck pain Postoperative Diagnosis: Same Anesthesia: GETA Pathology: none sent Condition: stable Disposition: PACU Description of Procedure: BRIEF OPERATIVE NOTE Preoperative Diagnosis: Herniated nucleus pulposis C4 5 with extruded fragment, right upper extremity radiculopathy, right upper extremity weakness, neck pain Postoperative Diagnosis: Same Procedure: Anterior cervical decompression with discectomy and fusion C4 5 Placement of interbody graft C4 5 Application of anterior cervical plate C4 5 Surgeon: Dr. Haynes Professor Of Early Childhood Education: Germain ROSA who is present throughout the entire the case persistence during positioning, dissection, exposure, visualization, and all crucial elements of the case as well as closure. Anesthesia: General anesthesia Estimated blood loss: Less than 50 mL Complications: None apparent Components implanted: [place] anterior cervical plate system from [employer] with a Vikoss interbody allograft bone graft Disposition: To recovery room in good stable condition. OPERATIVE INDICATIONS The patient has had severe issues in their neck and upper extremities. She is found have a very large disc herniation at C4 5 with a large extruded fragment causing severe right foraminal stenosis and distortion of the spinal cord. This disc herniation correlated very well with her neck and upper extremity symptoms. She was having severe radiculopathy on the right side with weakness at her right upper extremity. She was having significant debility and difficulty with her regular activities and with any sort of work activities. The patient has been through conservative treatment. She is not having any benefit. We discussed various treatment options including surgery, and the patient wishes to proceed with surgery We discussed the risk, patient's alternatives and benefits of surgery including but not limited to, risk of bleeding risk of infection, risk of need for further surgery, risk of decreased , loss of motion, muscle function, malunion nonunion, hardware failure, nerve damage, paralysis, heart attack, and . OPERATIVE SUMMARY After discussing all the risks, patient alternatives and benefits at length, the patient elected to proceed with surgical intervention, signed informed consent, and presented for their procedure. The patient was seen and examined in the preoperative holding area and the surgical site was marked. The patient was given antibiotics and brought to the operating room. The patient was positioned on the operating room table in a supine position being careful to pad any bony prominences and pressure points. The patient was sedated and intubated by anesthesia in standard fashion. Once the airway and C- spine were stabilized the patient's arms were padded and tucked at her side, with her shoulders gently taped. The head was placed in a donut pad with the neck in good neutral alignment and position. We were careful to maintain the patient's cervical spine and good neutral alignment and position throughout. The patient was prepped and draped in a normal standard fashion. An appropriate timeout and keystone protocol performed. We were able to proceed with the surgery. The local wound area was infiltrated with local anesthetic. An incision was made transversely approximately 2-1/2 cm over the appropriate levels at C4 5. Dissection was taken down subcutaneously to the level of the platysma which was split in line with its fibers. Dissection was taken with a carotid approach, with the trachea and esophagus medial and the carotid sheath laterally. We dissected down to the anterior surface of the vertebral bodies. Intraoperative x-ray was taken which showed a marker at the appropriate level. With the appropriate level positively confirmed, we were able to proceed with discectomy at the appropriate levels of C4 5. All of the operative levels were exposed appropriately. The patient had all their twitches back, and there was no evidence of recurrent laryngeal issue. The wound was copiously irrigated and suctioned dry as had been done periodically throughout the case. At the appropriate level/levels of C4 5, I established an annulotomy with an 11 blade scalpel. A discectomy was performed with a combination of pituitary rongeurs, curettes, a high-speed bur, and Kerrison rongeurs. The posterior longitudinal ligament was taken down as were any posterior osteophytes. There was a large extruded disc fragment at the right paracentral area causing severe stenosis and I was able to remove the disc fragments and any other loose fragments that were herniated. As able get a excellent decompression with the discectomy. This gave good central and bilateral foraminal decompression. There is no evidence of any dural tear or leak. The endplates were prepared with a high- speed bur. With the endplates in good parallel position, I was able to size for the appropriate size interbody graft. The wound was irrigated and suctioned dry the graft was prepared and malleted into position. It had good alignment and position with the anterior surface flush with the anterior surface of the vertebral bodies of C4 5 of C4 5 With the grafts intact, I was able to measure and contour and appropriate sized plate. The plate was positioned at the midline over the appropriate levels. Screw holes were established with a hand drill and drill guide. Screws were placed in good alignment and position with excellent bony purchase. She has somewhat small vertebrae and we used 12 mm length screws rather than 14 mm. They were seated under the locking device. The construct was checked and found to be stable. Intraoperative x-ray was taken which showed good alignment and position of the implants at the appropriate levels. There was no evidence of any dural tear or leak. Good hemostasis was maintained. The wound was copiously irrigated and suctioned dry as had been done periodically throughout the case. The platysma was closed with absorbable suture. The subcutaneous tissue was closed. The subcuticular tissue was closed with absorbable suture. The wound was cleaned and dried and dressed appropriately. A soft cervical collar was placed appropriately. The patient was woken up by anesthesia, extubated, transferred back gently to their hospital bed and brought to the recovery room in good stable condition. The patient will be admitted to the hospital for appropriate postoperative care , medical management and monitoring. We will continue to follow them closely about the postoperative course.
[2017-12-14 13:10] VITALS: TEMP 97.4
[2017-12-14] MEDS: HYDROmorphone 1 MG/ML 1 ML SYRINGE IVP PRN ×4 (13:17→13:31)
[2017-12-14] MEDS ORDERED: diphenhydrAMINE 50 MG/ML 1 ML VIAL IVP ONE (13:17)
[2017-12-14 13:21] VITALS: RESP 16
[2017-12-14] MEDS ORDERED: MEPERIDINE 50 MG/ML SYRINGE IVP ONE (13:41)
[2017-12-14 14:03] VITALS: BP 133/84; PULSE 70
[2017-12-14] MEDS ORDERED: ceFAZolin IN SWFI 2 GM/20 ML SYRINGE IVP SCH (16:00)
--- NOTE | 2017-12-15 13:33 | XR ---
Cervical spine HISTORY: Needle placement Single lateral view of the cervical spine submitted and correlated prior exam 10/21/2017 There is a needle superimposed over the C5 vertebral body. Endotracheal tube is in place. Temperature probe noted incidentally. There is overlying artifact. IMPRESSION: Orthopedic localization.
== END 2017-12-14 17:14 | disposition home or self-care (01) ==
LOC: OR 10:13 → 4SSUR 13:52 → OR 17:14
PROVIDERS: ATTEND Orthopaedic Surgery Orthopaedic Surgery of the Spine
DX: M50.121 Cervical disc disorder at C4-C5 level with radiculopathy (principal); Z88.0 Allergy status to penicillin
CPT/HCPCS: 72020; 22551; 20931; 22845; C1713; C1762; J1200; J2175; J2405; J1170; J0690

== ENCOUNTER 2020-05-05 17:55 | Emergency (ER) | payer OTHER ==
[2020-05-05 18:07] VITALS: TEMP 98.3
[2020-05-05] MEDS ORDERED: ONDANSETRON 4 MG/2 ML VIAL IVP STA (19:34)
[2020-05-05 19:46] LABS: Appearance,Urine Clear (Clear); Basophils # (A) 0.1 k/uL (0-0.2); Basophils % (A) 0 %; Bilirubin,Urine Negative (Negative); Blood,Urine Large (Negative); Color,Urine Yellow; Eosinophils # (A) 0.1 k/uL (0-0.7); Eosinophils % (A) 1 %; Glucose,Urine (UA) Negative (Negative); HCT 37.5 % (34.0-46.0); HGB 12.6 gm/dL (11.4-16.0); Ketones,Urine Negative (Negative); Leukocyte Esterase,Urine Negative (Negative); Lymphocytes # (A) 3.2 k/uL (1.0-4.8); Lymphocytes % (A) 23 %; MCH 27.6 pg (25.0-35.0); MCHC 33.6 g/dL (31.0-37.0); MCV 81.9 fL (80.0-100.0); Mean Platelet Volume 6.9; Monocytes # (A) 0.5 k/uL (0-1.0); Monocytes % (A) 3 %; Mucus,Urine Rare /hpf; Neutrophils # (A) 10.1 k/uL (1.3-7.7); Neutrophils % (A) 72 %; Nitrite,Urine Negative (Negative); Platelet Count 332 k/uL (150-450); Protein,Urine Trace (Negative); RBC 4.58 m/uL (3.80-5.40); RBC,Urine >182 /hpf (0-5); RDW 14.6 % (11.5-15.5); Specific Gravity,Urine 1.021 (1.001-1.035); Squamous Epithelial Cell,Urine 1 /hpf (0-4); Urobilinogen,Urine <2.0 mg/dL (<2.0); WBC 14.1 k/uL (3.8-10.6); WBC,Urine 9 /hpf (0-5)
[2020-05-05 19:51] LABS: INR 0.9 (<1.2)
--- NOTE | 2020-05-05 19:55 | ED ---
Female Urogenital HPI - General Chief complaint: Vaginal Bleeding Stated complaint: bleeding from biopsy site, nausea Time Seen by Provider: 05/05/20 18:48 Source: patient Mode of arrival: ambulatory - History of Present Illness Initial comments: Patient is a 34-year-old female presenting to the emergency Department with complaints of vaginal bleeding for the past 2 weeks. Patient states she had a uterine biopsy done on April 21 by her BIRD RAISER out of [facility]. Patient states she initially had a little bit of discharge and bleeding, stopped for a couple days and then the bleeding started again. She did follow up with her BIRD RAISER last week who stated that it was normal however patient continues to have bleeding. She states today she has gone through a pad every 4 hours. She started to feel lightheaded, nauseous. Call her BIRD RAISER again today however she did not get an answer. She does admit to some abdominal cramping, no abdominal pain, no fevers or chills. No chest pain or shortness of breath. She has no further complaints at this time. - Related Data Home Medications Medication Instructions Recorded Confirmed Kurvelo 1 tab PO HS 05/05/20 05/05/20 Allergies Allergy/AdvReac Type Severity Reaction Status Date / Time Penicillins Allergy Unknown Verified 05/05/20 20:20 Childhood morphine AdvReac Itching Verified 05/05/20 20:20 Review of Systems ROS Statement: Those systems with pertinent positive or pertinent negative responses have been documented in the HPI. ROS Other: All systems not noted in ROS Statement are negative. Past Medical History Past Medical History: No Reported History History of Any Multi-Drug Resistant Organisms: None Reported Past Surgical History: Hernia Repair Additional Past Surgical History / Comment(s): LapAROSCOPY, c section X2, removal of right ovary, biopsy of cervix, nov 2017 neck sx Past Anesthesia/Blood Transfusion Reactions: No Reported Reaction Past Psychological History: Anxiety Smoking Status: Former smoker Past Alcohol Use History: None Reported Past Drug Use History: None Reported - Past Family History Mother Family Medical History: Cancer General Exam - General Exam Comments Initial Comments: GENERAL: Patient is well-developed and well-nourished. Patient is nontoxic and in no acute distress. HEAD: Atraumatic, normocephalic. EYES: Pupils equal round and reactive to light, extraocular movements intact, sclera anicteric, conjunctiva are normal. Eyelids were unremarkable. ENT: TMs normal, nares patent, oropharynx clear without exudates. Moist mucous mem branes. NECK: Normal range of motion, supple without lymphadenopathy or JVD. LUNGS: Unlabored respirations. Breath sounds clear to auscultation bilaterally and equal. No wheezes rales or rhonchi. HEART: Regular rate and rhythm without murmurs, rubs or gallops. ABDOMEN: Soft, nontender, normoactive bowel sounds. No guarding, no rebound. No masses appreciated. MUSCULOSKELETAL: Normal extremities with adequate strength and normal range of motion, no pitting or edema. No clubbing or cyanosis. NEUROLOGICAL: Patient is alert and oriented x 3. Motor and sensory are also intact. Cranial nerves II through XII grossly intact. Symmetrical smile. Normal speech, normal gait. PSYCH: Normal mood, normal affect. SKIN: Warm, Dry, normal turgor, no rashes or lesions noted. External exam: Present: normal external exam Speculum exam: Present: vaginal bleeding. Absent: cervical discharge, foreign body By manual exam: Present: normal by manual exam Course Vital Signs 05/05/20 18:05 Temperature 98.3 F Pulse Rate 83 Respiratory 18 Rate Blood Pressure 121/74 O2 Sat by Pulse 98 Oximetry Medical Decision Making - Medical Decision Making Patient is a 34-year-old female here for vaginal bleeding after she had cervix a biopsy on April 21. On pelvic exam, there is no stiff Bleeding, there is some small amount of blood in the vaginal vault. Her cervix looks healthy and normal. I did do a genital culture which is pending. No belly pain on exam. Labs are within normal limits, urine shows evidence of bacteria, trichomonas is negative. As the patient and her hemoglobin is stable, do recommend following up with her BIRD RAISER regarding her continuous bleeding. Return parameters were di scussed with the patient she verbalized understanding. She is in agreement with this plan of care. Case discussed Dr. Mohr. - Lab Data Result diagrams: 05/05/20 19:18 05/05/20 19:18 Lab Results 05/05/20 05/05/20 05/05/20 Range/Units 19:18 19:18 19:18 WBC 14.1 H (3.8-10.6) k/uL RBC 4.58 (3.80-5.40) m/uL Hgb 12.6 (11.4-16.0) gm/dL Hct 37.5 (34.0-46.0) % MCV 81.9 (80.0-100.0) fL MCH 27.6 (25.0-35.0) pg MCHC 33.6 (31.0-37.0) g/dL RDW 14.6 (11.5-15.5) % Plt Count 332 (150-450) k/uL MPV 6.9 Neutrophils % 72 % Lymphocytes % 23 % Monocytes % 3 % Eosinophils % 1 % Basophils % 0 % Neutrophils # 10.1 H (1.3-7.7) k/uL Lymphocytes # 3.2 (1.0-4.8) k/uL Monocytes # 0.5 (0-1.0) k/uL Eosinophils # 0.1 (0-0.7) k/uL Basophils # 0.1 (0-0.2) k/uL PT (9.0-12.0) sec INR (<1.2) APTT (22.0-30.0) sec Sodium (137-145) mmol/L Potassium (3.5-5.1) mmol/L Chloride (98-107) mmol/L Carbon Dioxide (22-30) mmol/L Anion Gap mmol/L BUN (7-17) mg/dL Creatinine (0.52-1.04) mg/dL Est GFR (CKD-EPI)AfAm (>60 ml/min/1.73 sqM) Est GFR (CKD-EPI)NonAf (>60 ml/min/1.73 sqM) Glucose (74-99) mg/dL Calcium (8.4-10.2) mg/dL Total Bilirubin (0.2-1.3) mg/dL AST (14-36) U/L ALT (4-34) U/L Alkaline Phosphatase (38-126) U/L Total Protein (6.3-8.2) g/dL Albumin (3.5-5.0) g/dL Urine Color Yellow Urine Appearance Clear (Clear) Urine pH 6.0 (5.0-8.0) Ur Specific [place] 1.021 (1.001-1.035) Urine Protein Trace H (Negative) Urine Glucose (UA) Negative (Negative) Urine Ketones Negative (Negative) Urine Blood Large H (Negative) Urine Nitrite Negative (Negative) Urine Bilirubin Negative (Negative) Urine Urobilinogen <2.0 (<2.0) mg/dL Ur Leukocyte Esterase Negative (Negative) Urine RBC >182 H (0-5) /hpf Urine WBC 9 H (0-5) /hpf Ur Squamous Epith Cells 1 (0-4) /hpf Urine Mucus Rare H (None) /hpf Urine HCG, Qual Not Detected (Not Detectd) Trichomonas Ag (Rapid) (Negative) Blood Type Blood Type Recheck Bld Type Recheck Status Antibody Screen Spec Expiration Date 05/05/20 05/05/20 05/05/20 Range/Units 19:18 19:20 19:23 WBC (3.8-10.6) k/uL RBC (3.80-5.40) m/uL Hgb (11.4-16.0) gm/dL Hct (34.0-46.0) % MCV (80.0-100.0) fL MCH (25.0-35.0) pg MCHC (31.0-37.0) g/dL RDW (11.5-15.5) % Plt Count (150-450) k/uL MPV Neutrophils % % Lymphocytes % % Monocytes % % Eosinophils % % Basophils % % Neutrophils # (1.3-7.7) k/uL Lymphocytes # (1.0-4.8) k/uL Monocytes # (0-1.0) k/uL Eosinophils # (0-0.7) k/uL Basophils # (0-0.2) k/uL PT 10.0 (9.0-12.0) sec INR 0.9 (<1.2) APTT 24.0 (22.0-30.0) sec Sodium 136 L (137-145) mmol/L Potassium 4.4 (3.5-5.1) mmol/L Chloride 105 (98-107) mmol/L Carbon Dioxide 21 L (22-30) mmol/L Anion Gap 10 mmol/L BUN 14 (7-17) mg/dL Creatinine 0.54 (0.52-1.04) mg/dL Est GFR (CKD-EPI)AfAm >90 (>60 ml/min/1.73 sqM) Est GFR (CKD-EPI)NonAf >90 (>60 ml/min/1.73 sqM) Glucose 104 H (74-99) mg/dL Calcium 9.4 (8.4-10.2) mg/dL Total Bilirubin 0.3 (0.2-1.3) mg/dL AST 31 (14-36) U/L ALT 27 (4-34) U/L Alkaline Phosphatase 58 (38-126) U/L Total Protein 7.5 (6.3-8.2) g/dL Albumin 4.5 (3.5-5.0) g/dL Urine Color Urine Appearance (Clear) Urine pH (5.0-8.0) Ur Specific [place] (1.001-1.035) Urine Protein (Negative) Urine Glucose (UA) (Negative) Urine Ketones (Negative) Urine Blood (Negative) Urine Nitrite (Negative) Urine Bilirubin (Negative) Urine Urobilinogen (<2.0) mg/dL Ur Leukocyte Esterase (Negative) Urine RBC (0-5) /hpf Urine WBC (0-5) /hpf Ur Squamous Epith Cells (0-4) /hpf Urine Mucus (None) /hpf Urine HCG, Qual (Not Detectd) Trichomonas Ag (Rapid) (Negative) Blood Type O Positive Blood Type Recheck O Pos Bld Type Recheck Status No Antibody Screen NEGATIVE Spec Expiration Date 05/08/2020 - 231905/05/20 Range/Units 19:29 WBC (3.8-10.6) k/uL RBC (3.80-5.40) m/uL Hgb (11.4-16.0) gm/dL Hct (34.0-46.0) % MCV (80.0-100.0) fL MCH (25.0-35.0) pg MCHC (31.0-37.0) g/dL RDW (11.5-15.5) % Plt Count (150-450) k/uL MPV Neutrophils % % Lymphocytes % % Monocytes % % Eosinophils % % Basophils % % Neutrophils # (1.3-7.7) k/uL Lymphocytes # (1.0-4.8) k/uL Monocytes # (0-1.0) k/uL Eosinophils # (0-0.7) k/uL Basophils # (0-0.2) k/uL PT (9.0-12.0) sec INR (<1.2) APTT (22.0-30.0) sec Sodium (137-145) mmol/L Potassium (3.5-5.1) mmol/L Chloride (98-107) mmol/L Carbon Dioxide (22-30) mmol/L Anion Gap mmol/L BUN (7-17) mg/dL Creatinine (0.52-1.04) mg/dL Est GFR (CKD-EPI)AfAm (>60 ml/min/1.73 sqM) Est GFR (CKD-EPI)NonAf (>60 ml/min/1.73 sqM) Glucose (74-99) mg/dL Calcium (8.4-10.2) mg/dL Total Bilirubin (0.2-1.3) mg/dL AST (14-36) U/L ALT (4-34) U/L Alkaline Phosphatase (38-126) U/L Total Protein (6.3-8.2) g/dL Albumin (3.5-5.0) g/dL Urine Color Urine Appearance (Clear) Urine pH (5.0-8.0) Ur Specific [place] (1.001-1.035) Urine Protein (Negative) Urine Glucose (UA) (Negative) Urine Ketones (Negative) Urine Blood (Negative) Urine Nitrite (Negative) Urine Bilirubin (Negative) Urine Urobilinogen (<2.0) mg/dL Ur Leukocyte Esterase (Negative) Urine RBC (0-5) /hpf Urine WBC (0-5) /hpf Ur Squamous Epith Cells (0-4) /hpf Urine Mucus (None) /hpf Urine HCG, Qual (Not Detectd) Trichomonas Ag (Rapid) Negative (Negative) Blood Type Blood Type Recheck Bld Type Recheck Status Antibody Screen Spec Expiration Date Disposition Clinical Impression: Dysfunctional uterine bleeding Disposition: HOME SELF-CARE Condition: Stable Instructions (If sedation given, give patient instructions): Dysfunctional Uterine Bleeding (ED) Additional Instructions: Please return to the Emergency Department if symptoms worsen or any other concerns. Follow-up with her BIRD RAISER regarding your vaginal bleeding. Is patient prescribed a controlled substance at d/c from ED?: No Referrals: Clay Saxena MD [Primary Care Provider] - 1-2 days
[2020-05-05 19:56] LABS: ALT 27 U/L (4-34); AST 31 U/L (14-36); African American GFR (CKD) >90 (>60 ml/min/1.73 sqM); Albumin 4.5 g/dL (3.5-5.0); Alkaline Phosphatase 58 U/L (38-126); Anion Gap 10 mmol/L; Blood Urea Nitrogen 14 mg/dL (7-17); Calcium 9.4 mg/dL (8.4-10.2); Carbon Dioxide 21 mmol/L (22-30); Chloride 105 mmol/L (98-107); Glucose 104 mg/dL (74-99); Non-African American GFR(CKD) >90 (>60 ml/min/1.73 sqM); Potassium 4.4 mmol/L (3.5-5.1); Sodium 136 mmol/L (137-145); Total Bilirubin 0.3 mg/dL (0.2-1.3); Total Protein 7.5 g/dL (6.3-8.2)
[2020-05-05 20:38] VITALS: BP 122/78; PULSE 72; RESP 16
[2020-05-07 13:58] LABS: C. trachomatis,PCR Negative (Neg,Equiv); Chlamydia trachomatis Source Cervix; N. gonorrhoeae,PCR Negative (Neg,Equiv); Neisseria Source Cervix
== END 2020-05-05 20:38 | disposition home or self-care (01) ==
LOC: EC 17:55
DX: N93.8 Other specified abnormal uterine and vaginal bleeding (principal); F41.9 Anxiety disorder, unspecified; Z87.891 Personal history of nicotine dependence
CPT/HCPCS: 36415; 86900; 86901; 80053; 85025; 85610; 85730; 86850; 81001; 81025; 87808; 87491; 87591; 87070; 99284; 96374; J2405

== ENCOUNTER 2020-08-23 11:09 | Emergency (ER) | payer OTHER ==
[2020-08-23 11:18] VITALS: RESP 16; TEMP 98.3
--- NOTE | 2020-08-23 11:42 | ED ---
Allergic Reaction HPI - General Chief complaint: Allergic Reaction Stated complaint: allergic reaction Time Seen by Provider: 08/23/20 11:23 Source: patient Mode of arrival: ambulatory Limitations: no limitations - History of Present Illness Initial Comments: Patient is a 35-year-old female presenting to the emergency Department with complaints of hives and facial swelling. Patient states she had complete hysterectomy on July 14, about 3 weeks postop, she started having some generalized hives and swelling of certain parts of her body. She to her GLOBAL SALES MANAGER who referred her back to her primary care physician, she has been on steroids for about 7 days, was off for about a day or 2, started having hives and swelling and then now is back on prednisone taper. She is currently noticed swelling of her left eye and hives around her neck, underneath left arm and on her thighs. She states she did not take any steroids today. Her doctor is concerned that she could be having a reaction to something to do with the surgery. She's had no chest pain or shortness of breath, no trouble breathing. Her incisions have healed well, she's had no other postop complications. She's had no fevers. She has no further complaints at this time. Upon arrival to the ER, her vitals are stable. - Related Data Home Medications Medication Instructions Recorded Confirmed Kurvelo 1 tab PO HS 05/05/20 05/05/20 Allergies Allergy/AdvReac Type Severity Reaction Status Date / Time Penicillins Allergy Unknown Verified 08/23/20 11:16 Childhood morphine AdvReac Itching Verified 08/23/20 11:16 Review of Systems ROS Statement: Those systems with pertinent positive or pertinent negative responses have been documented in the HPI. ROS Other: All systems not noted in ROS Statement are negative. Past Medical History Past Medical History: No Reported History History of Any Multi-Drug Resistant Organisms: None Reported Past Surgical History: Hernia Repair, Hysterectomy Additional Past Surgical History / Comment(s): LapAROSCOPY, c section X2, removal of right ovary, biopsy of cervix, nov 2017 neck sx Past Anesthesia/Blood Transfusion Reactions: No Reported Reaction Past Psychological History: Anxiety Smoking Status: Former smoker Past Alcohol Use History: None Reported Past Drug Use History: None Reported - Past Family History Mother Family Medical History: Cancer General Exam - General Exam Comments Initial Comments: GENERAL: Patient is well-developed and well-nourished. Patient is nontoxic and in no acute distress. HEAD: Atraumatic, normocephalic. EYES: Pupils equal round and reactive to light, extraocular movements intact, sclera anicteric, conjunctiva are normal. Eyelids were unremarkable. ENT: TMs normal, nares patent, oropharynx clear without exudates. Moist mucous membranes. NECK: Normal range of motion, supple without lymphadenopathy or JVD. LUNGS: Unlabored respirations. Breath sounds clear to auscultation bilaterally and equal. No wheezes rales or rhonchi. HEART: Regular rate and rhythm without murmurs, rubs or gallops. ABDOMEN: Soft, nontender, normoactive bowel sounds. No guarding, no rebound. No masses appreciated. : Deferred MUSCULOSKELETAL: Normal extremities with adequate strength and normal range of motion, no pitting or edema. No clubbing or cyanosis. NEUROLOGICAL: Patient is alert and oriented x 3. Motor and sensory are also intact. Cranial nerves II through XII grossly intact. Symmetrical smile. Normal speech, normal gait. PSYCH: Normal mood, normal affect. SKIN: Warm, Dry, normal turgor. Mild hives present on inner thighs bilaterally, palmar side of left upper arm. She also has some mild swelling to the left lower eyelid. She is pruritic Limitations: no limitations Course Vital Signs 08/23/20 08/23/20 08/23/20 11:16 11:28 12:39 Temperature 98.3 F Pulse Rate 100 89 Respiratory 16 16 16 Rate Blood Pressure 129/96 141/98 O2 Sat by Pulse 97 100 Oximetry Medical Decision Making - Medical Decision Making She is a 35-year-old female here for possible ALLERGIC reaction. She has some generalized hives in her bilateral inner thighs, left upper arm and some swelling to her left eye. Her vitals are stable, no alarming symptoms. Labs s how an elevated white count but she has been on steroids for about a week and a half, otherwise no other acute findings. Patient was given steroids, Benadryl and reports improvement in her symptoms. I discussed with her that she is followed back up with her primary care physician and/or dermatology. She may take Benadryl and/or Pepcid as needed for any further itching. She is in agreement with this plan of care and is stable for discharge. Case discussed with Dr. Hardy. - Lab Data Result diagrams: 08/23/20 11:49 08/23/20 11:49 Lab Results 08/23/20 08/23/20 Range/Units 11:49 11:49 WBC 20.4 H (3.8-10.6) k/uL RBC 4.75 (3.80-5.40) m/uL Hgb 11.8 (11.4-16.0) gm/dL Hct 35.5 (34.0-46.0) % MCV 74.6 L (80.0-100.0) fL MCH 24.9 L (25.0-35.0) pg MCHC 33.4 (31.0-37.0) g/dL RDW 14.7 (11.5-15.5) % Plt Count 408 (150-450) k/uL MPV 6.4 Neutrophils % 60 % Lymphocytes % 32 % Monocytes % 5 % Eosinophils % 1 % Basophils % 0 % Neutrophils # 12.2 H (1.3-7.7) k/uL Lymphocytes # 6.5 H (1.0-4.8) k/uL Monocytes # 1.0 (0-1.0) k/uL Eosinophils # 0.3 (0-0.7) k/uL Basophils # 0.1 (0-0.2) k/uL Manual Slide Review Performed Microcytosis Slight Sodium 139 (137-145) mmol/L Potassium 4.0 (3.5-5.1) mmol/L Chloride 106 (98-107) mmol/L Carbon Dioxide 22 (22-30) mmol/L Anion Gap 11 mmol/L BUN 13 (7-17) mg/dL Creatinine 0.49 L (0.52-1.04) mg/dL Est GFR (CKD-EPI)AfAm >90 (>60 ml/min/1.73 sqM) Est GFR (CKD-EPI)NonAf >90 (>60 ml/min/1.73 sqM) Glucose 111 H (74-99) mg/dL Calcium 9.7 (8.4-10.2) mg/dL Total Bilirubin 0.2 (0.2-1.3) mg/dL AST 36 (14-36) U/L ALT 40 H (4-34) U/L Alkaline Phosphatase 70 (38-126) U/L C-Reactive Protein 2.0 H (<1.0) mg/dL Total Protein 7.3 (6.3-8.2) g/dL Albumin 4.5 (3.5-5.0) g/dL Disposition Clinical Impression: Allergic reaction Disposition: HOME SELF-CARE Condition: Stable Instructions (If sedation given, give patient instructions): Urticaria (ED) Additional Instructions: Please return to the Emergency Department if symptoms worsen or any other concerns. Continue with steroids as prescribed tomorrow. May take Benadryl and/or Pepcid if for any further itching. Follow-up with your primary care physician and/or dermatology as discussed. Is patient prescribed a controlled substance at d/c from ED?: No Referrals: Estefanía Holguin, NPC [Primary Care Provider] - 1-2 days Time of Disposition: 13:14
[2020-08-23] MEDS: diphenhydrAMINE 50 MG/ML 1 ML VIAL IVP STA (11:48)
[2020-08-23] MEDS: methylPREDNISolone SOD SUCCI 125 MG/2 ML VIAL IV STA (11:48)
[2020-08-23] MEDS: SODIUM CHLORIDE 0.9% 500 ML 500 ML IV STA (11:48)
[2020-08-23 11:55] LABS: Basophils # (A) 0.1 k/uL (0-0.2); Basophils % (A) 0 %; Eosinophils # (A) 0.3 k/uL (0-0.7); Eosinophils % (A) 1 %; HCT 35.5 % (34.0-46.0); HGB 11.8 gm/dL (11.4-16.0); Lymphocytes # (A) 6.5 k/uL (1.0-4.8); Lymphocytes % (A) 32 %; MCH 24.9 pg (25.0-35.0); MCHC 33.4 g/dL (31.0-37.0); MCV 74.6 fL (80.0-100.0); Mean Platelet Volume 6.4; Microcytosis Slight; Monocytes % (A) 5 %; Neutrophils # (A) 12.2 k/uL (1.3-7.7); Neutrophils % (A) 60 %; Platelet Count 408 k/uL (150-450); RBC 4.75 m/uL (3.80-5.40); RDW 14.7 % (11.5-15.5); WBC 20.4 k/uL (3.8-10.6)
[2020-08-23 12:06] LABS: ALT 40 U/L (4-34); AST 36 U/L (14-36); African American GFR (CKD) >90 (>60 ml/min/1.73 sqM); Albumin 4.5 g/dL (3.5-5.0); Alkaline Phosphatase 70 U/L (38-126); Anion Gap 11 mmol/L; Blood Urea Nitrogen 13 mg/dL (7-17); Calcium 9.7 mg/dL (8.4-10.2); Carbon Dioxide 22 mmol/L (22-30); Chloride 106 mmol/L (98-107); Glucose 111 mg/dL (74-99); Non-African American GFR(CKD) >90 (>60 ml/min/1.73 sqM); Sodium 139 mmol/L (137-145); Total Bilirubin 0.2 mg/dL (0.2-1.3); Total Protein 7.3 g/dL (6.3-8.2)
[2020-08-23 12:40] VITALS: BP 141/98; PULSE 89
[2020-08-23 13:29] LABS: Erythrocyte Sedimentation Rate 22 mm/hr (0-20)
== END 2020-08-23 13:20 | disposition home or self-care (01) ==
LOC: EC 11:09
DX: T78.40XA Allergy, unspecified, initial encounter (principal); F41.9 Anxiety disorder, unspecified; Z87.891 Personal history of nicotine dependence; Z88.0 Allergy status to penicillin; Z88.5 Allergy status to narcotic agent; Z90.710 Acquired absence of both cervix and uterus; Z90.721 Acquired absence of ovaries, unilateral
CPT/HCPCS: 36415; 80053; 85652; 85025; 86140; 99284; 96374; 96375; J1200; J2930

== ENCOUNTER 2020-08-25 19:03 | Emergency (ER) | payer OTHER ==
[2020-08-25 19:07] VITALS: TEMP 97.8
[2020-08-25] MEDS ORDERED: methylPREDNISolone SOD SUCCI 125 MG/2 ML VIAL IV STA (19:42)
[2020-08-25] MEDS ORDERED: FAMOTIDINE 20 MG/2 ML VIAL IV STA (19:42)
[2020-08-25] MEDS ORDERED: diphenhydrAMINE 50 MG/ML 1 ML VIAL IVP STA (19:42)
--- NOTE | 2020-08-25 19:49 | ED ---
Allergic Reaction HPI - General Chief complaint: Allergic Reaction Stated complaint: Allergic reaction Time Seen by Provider: 08/25/20 19:09 Source: patient, RN notes reviewed Mode of arrival: ambulatory Limitations: no limitations - History of Present Illness Initial Comments: 35-year-old female presents emergency Department chief complaint of ongoing hives, swelling of her lip, sensation of her throat swelling. Patient states that she been having issues with different areas her right swelling with a last several weeks. Patient states started 3 weeks postop from a hysterectomy. Patient states that she has been on steroid she currently still is on steroids took 30 mg as directed today. No antihistamines. Patient did follow-up with her PCP and PUBLIC RECORDS OFFICER. She is concerned that she may be having a reaction to his surgical clips. Patient denies any shortness of breath currently she states that she's had swelling of her eyelids, lips, ears, different areas of urticaria - Related Data Home Medications Medication Instructions Recorded Confirmed Kurvelo 1 tab PO HS 05/05/20 05/05/20 Previous Rx's Medication Instructions Recorded Loratadine [Claritin] 10 mg PO DAILY #20 tab 08/25/20 predniSONE 50 mg PO DAILY #5 tab 08/25/20 Allergies Allergy/AdvReac Type Severity Reaction Status Date / Time Penicillins Allergy Unknown Verified 08/25/20 19:07 Childhood morphine AdvReac Itching Verified 08/25/20 19:07 Review of Systems ROS Statement: Those systems with pertinent positive or pertinent negative responses have been documented in the HPI. ROS Other: All systems not noted in ROS Statement are negative. Past Medical History Past Medical History: No Reported History History of Any Multi-Drug Resistant Organisms: None Reported Past Surgical History: Hernia Repair, Hysterectomy Additional Past Surgical History / Comment(s): LapAROSCOPY, c section X2, removal of right ovary, biopsy of cervix, nov 2017 neck sx Past Anesthesia/Blood Transfusion Reactions: No Reported Reaction Past Psychological History: Anxiety Smoking Status: Former smoker Past Alcohol Use History: None Reported Past Drug Use History: None Reported - Past Family History Mother Family Medical History: Cancer General Exam Limitations: no limitations General appearance: alert, in no apparent distress Head exam: Present: atraumatic, normocephalic, normal inspection Eye exam: Present: normal appearance, PERRL, EOMI. Absent: scleral icterus, conjunctival injection, periorbital swelling ENT exam: Present: mucous membranes moist, TM's normal bilaterally, normal external ear exam. Absent: normal oropharynx (Mild swelling on the right lower lip mild swelling of the uvula) Neck exam: Present: normal inspection, full ROM. Absent: tenderness, meningismus, lymphadenopathy Respiratory exam: Present: normal lung sounds bilaterally. Absent: respiratory distress, wheezes, rales, rhonchi, stridor Cardiovascular Exam: Present: regular rate, normal rhythm, normal heart sounds. Absent: systolic murmur, diastolic murmur, rubs, gallop, clicks GI/Abdominal exam: Present: soft, normal bowel sounds. Absent: distended, tenderness, guarding, rebound, rigid Neurological exam: Present: alert Skin exam: Present: warm, dry, intact, normal color. Absent: rash Course Vital Signs 08/25/20 08/25/20 08/25/20 19:04 19:53 20:41 Temperature 97.8 F Pulse Rate 90 78 Respiratory 20 20 20 Rate Blood Pressure 166/103 133/92 O2 Sat by Pulse 96 97 Oximetry Medical Decision Making - Medical Decision Making 35-year-old female presented for ongoing ALLERGIC to symptoms. Patient has noted acute distress. Patient was given Solu-Medrol Benadryl and Pepcid she does feel better. Patient has minimal swelling. Patient advised to discontinue all new medications including her Continental at home or any [id number] Medications. She'll be started on daily antihistamine, high dose steroids with close follow-up. And then will be started on prednisone taper from PCP for dermatology. I discussed strict return parameters. Disposition Clinical Impression: Allergic reaction Disposition: HOME SELF-CARE Condition: Stable Instructions (If sedation given, give patient instructions): General Allergic Reaction (ED) Additional Instructions: Please return to the Emergency Department if symptoms worsen or any other concerns. Prescriptions: Loratadine [Claritin] 10 mg PO DAILY #20 tab predniSONE 50 mg PO DAILY #5 tab Is patient prescribed a controlled substance at d/c from ED?: No Referrals: None,Stated [Primary Care Provider] - 1-2 days Time of Disposition: 21:43
--- NOTE | 2020-08-25 20:26 | XR ---
EXAMINATION TYPE: XR soft tissue neck DATE OF EXAM: 08/25/2020 COMPARISON: NONE HISTORY: Difficulty swallowing. TECHNIQUE: 2 views FINDINGS: Epiglottis is normal. Subglottic trachea appears normal. Tonsils and adenoids appear normal . There is cervical spine fusion surgery at C4-5. IMPRESSION: Negative cervical soft tissue exam.
[2020-08-25 21:50] VITALS: BP 138/91; PULSE 85; RESP 22
== END 2020-08-25 21:50 | disposition home or self-care (01) ==
LOC: EC 19:03
DX: T78.40XA Allergy, unspecified, initial encounter (principal); F41.9 Anxiety disorder, unspecified; Z79.52 Long term (current) use of systemic steroids; Z79.899 Other long term (current) drug therapy; Z88.0 Allergy status to penicillin; Z88.5 Allergy status to narcotic agent; Z87.891 Personal history of nicotine dependence
CPT/HCPCS: 70360; 96374; 96375 ×2; 99283; J1200; J2930

== ENCOUNTER 2021-12-26 12:15 | Emergency (ER) | payer OTHER ==
[2021-12-26] MEDS ORDERED: LIDOCAINE VISCOUS 2% 15 ML CUP MUCOUS MEM ONE (14:19)
--- NOTE | 2021-12-26 14:22 | ED ---
General Adult HPI - Related Data Home Medications Medication Instructions Recorded Confirmed Kurvelo 1 tab PO HS 05/05/20 05/05/20 Previous Rx's Medication Instructions Recorded Loratadine [Claritin] 10 mg PO DAILY #20 tab 08/25/20 predniSONE 50 mg PO DAILY #5 tab 08/25/20 Allergies Allergy/AdvReac Type Severity Reaction Status Date / Time Penicillins Allergy Unknown Verified 08/25/20 19:07 Childhood morphine AdvReac Itching Verified 08/25/20 19:07 Review of Systems ROS Statement: Those systems with pertinent positive or pertinent negative responses have been documented in the HPI. ROS Other: All systems not noted in ROS Statement are negative. Past Medical History Past Medical History: No Reported History History of Any Multi-Drug Resistant Organisms: None Reported Past Surgical History: Hernia Repair, Hysterectomy Additional Past Surgical History / Comment(s): LapAROSCOPY, c section X2, removal of right ovary, biopsy of cervix, nov 2017 neck sx Past Anesthesia/Blood Transfusion Reactions: No Reported Reaction Past Psychological History: Anxiety Smoking Status: Former smoker Past Alcohol Use History: None Reported Past Drug Use History: None Reported - Past Family History Mother Family Medical History: Cancer Course Vital Signs 12/26/21 14:32 Pulse Rate 85 Respiratory 16 Rate Blood Pressure 122/84 Medical Decision Making - Medical Decision Making Please see the paper downtime chart Disposition Clinical Impression: Strep pharyngitis Disposition: HOME SELF-CARE Condition: Good Instructions (If sedation given, give patient instructions): Strep Throat (ED) Is patient prescribed a controlled substance at d/c from ED?: No Referrals: Leonel Palacios MD [Primary Care Provider] - 1-2 days
[2021-12-26 14:32] VITALS: BP 122/84; PULSE 85; RESP 16
== END 2021-12-26 14:32 | disposition home or self-care (01) ==
LOC: EC 13:34
DX: J02.0 Streptococcal pharyngitis (principal); F41.9 Anxiety disorder, unspecified; Z87.891 Personal history of nicotine dependence; Z88.0 Allergy status to penicillin; Z88.6 Allergy status to analgesic agent
CPT/HCPCS: 99282